=== PATIENT | female | born 1990 ===

== ENCOUNTER 2024-08-03 10:08 | Outpatient (RCR) | payer OTHER, SELFPAY | END 2024-08-03 14:28 | disposition home or self-care (01) | LOC: HO.PT 10:08 | PROVIDERS: PCP Family Medicine; Visit Provider Family Medicine | DX: M25.572 Pain in left ankle and joints of left foot (principal) | CPT/HCPCS: 97110; 97112; 97140; 97161 ==

== ENCOUNTER 2024-08-22 08:18 | Emergency (ER) | payer OTHER, SELFPAY ==
--- NOTE | ~2024-08-22 | CT_ITS ---
CLINICAL HISTORY: flank pain CT abdomen and pelvis without contrast Comparison: None Findings: No consolidation or effusion. The gallbladder is decompressed. The liver, spleen, adrenal glands and pancreas are unremarkable. There is a 2 mm nonobstructing right upper pole calculus. The left ureter is minimally prominent without radiopaque calculus. The bladder is significantly distended. There is a large right adnexal cyst, measuring up to 6 cm. No bowel obstruction or free air. No pneumatosis, free fluid or abscess. No acute osseous finding. Impression: Minimal fullness of the left ureter, without current radiopaque ureteral calculus. There is a nonobstructing 2 mm right upper pole calculus. There is a 6 cm right adnexal cysts. This document has been electronically signed by: Vinny Torres MD on 08/22/2024 10:41:08
--- NOTE | ~2024-08-22 | US_ITS ---
CLINICAL HISTORY: ? torsion, + pain + 6cm ovarvarin cyst US female pelvis LMP:Unknown. Technique: Ultrasound examination of the pelvis was performed with transabdominal and transvaginal technique for better visualization of the right ovary. Images include: color Doppler and spectral Doppler waveforms. Comparison: CT/SR - CT ABDOMEN PELVIS WO IV CON - 08/22/24 09:36 EDT Findings: Anteverted uterus measuring 9.0 x 3.5 x 4.6cm without masses. Normal endometrial thickness of 0.7cm. The right ovary is enlarged, measuring 6.5 x 5.1 x 3.6cm, volume of 62.5mL. There is normal echogenicity and arterial/venous vascularity. Hypoechoic avascular lesion with a reticular pattern measuring 5.4 x 3.8 x 4.0 cm. Status post left oophorectomy. No lesions in the left adnexa. There is a trace amount of fluid in the cul-de-sac, which is likely physiologic. Impression: 5.4 cm right ovarian hemorrhagic cyst. 8-12 week follow up pelvic ultrasound is recommended. No torsion. This document has been electronically signed by: Sheri Gill MD on 08/22/2024 13:40:44
[2024-08-22 08:25] VITALS: BP 137/91; PULSE 99; RESP 19; TEMP 36.6; O2SAT 99; BMI 30.6
[2024-08-22 08:58] VITALS: BP 129/82; PULSE 82; RESP 16; TEMP 36.6; O2SAT 99
[2024-08-22 09:14] LABS: MANUAL DIFF FLAG NO
[2024-08-22 09:16] LABS: Basophils Percent Auto 0.4 % (0-2); Eosinophils Percent Auto 0.3 % (0-4); Hematocrit 41.8 % (37.0-47.0); Hemoglobin 14.2 g/dl (12.0-16.0); Imm Gran Abs Auto 0.04 X10*3/uL (0.00-0.03); Imm Gran Pct Auto 0.4 % (0.0-0.4); Lymphocytes Absolute Auto 2.7 X10*3/uL (1.2-4.9); Lymphocytes Percent Auto 29.2 % (20-40); Mean Corpuscular Hemoglobin 31.3 pg (27.0-33.0); Mean Corpuscular Volume 92.1 fL (80.0-98.0); Mean Platelet Volume 10.4 fL (9.4-12.3); Monocytes Absolute Auto 0.5 X10*3/uL (0.1-1.2); Monocytes Percent Auto 4.9 % (2-11); Neutrophils Absolute Auto 5.9 x10*3/uL (2.0-8.3); Neutrophils Percent Auto 64.8 % (45-73); Platelet Count 292 X10*3/uL (160-400); Red Blood Count 4.54 X10*6/uL (4.20-5.50); White Blood Count 9.1 X10*3/uL (4.8-10.8)
[2024-08-22 09:18] LABS: Appearance Urine Clear; Color Urine Yellow; Glucose Urine UA Negative (Negative); Leukocyte Esterase Urine Negative (Negative); Nitrite Urine Negative (Negative); PH 6.5 (5.0-9.0); Specific Gravity - Urine 1.015 (1.005-1.025); Urine Blood Negative (Negative); Urine Ketones Negative (Negative); Urine Protein Negative (Neg-Trace)
[2024-08-22 09:19] LABS: UPreg QC Valid YES; Urine Pregnancy NEGATIVE (NEGATIVE)
[2024-08-22] MEDS: 0.9 % Sodium Chloride 1,000 ML 999 ML IV (09:25)
--- NOTE | 2024-08-22 09:31 | ED_ITS ---
HPI - Female Genitourinary General Chief complaint: Urogenital-Female Stated complaint: kidney pain uti issues Time Seen by Provider: 08/22/24 08:43 History of Present Illness HPI Narrative: patient is a 34-year-old female presents today with having dysuria for 1 week. Patient was given antibiotics at [facility] on [place] took 3 doses of Macrobid symptoms not better now complaining of bilateral flank pain. Some diarrhea. There is no vomiting. Patient does not think she is her last menstrual cycle started on August 01. Ended on the this is normal for her. There is no fever no chills. There is no vaginal discharge. Patient is from home. She had her fallopian tube removed question etiology but patient does not think she is . no cough no congestion or upper respiratory symptoms. No diaphoresis. Patient is from home. Related Data Allergies Allergy/AdvReac Type Severity Reaction Status Date / Time naproxen [NAPROXEN] Allergy Unknown ABD PAIN, Verified 08/22/24 08:27 ANXIETY oxycodone [OXYCODONE] Allergy Unknown STOMACH Verified 08/22/24 08:27 UPSET hydrocodone Allergy Unknown Verified 08/22/24 08:27 Review of Systems 2 Review of Systems: Positive flank pain bilaterally Yes all other systems are reviewed and are negative PMFSH Past Medical History Attestation statement: The following information was validated with the patient. Social History Social History Smoked in Last 30 Days: No Use of substances other than those prescribed or required for medical reasons: No Advance Directives: No Advance Directives Information Provided: No Do you have a plan to hurt others: No Plan Patient : No Physical Exam 2 Vital Signs: Vital Signs: Last Vital Signs Temp 97.3 F 08/22/24 14:09 Pulse 69 08/22/24 14:09 Resp 18 08/22/24 14:09 BP 126/89 08/22/24 14:09 Pulse Ox 100 08/22/24 14:09 O2 Del Method Room Air 08/22/24 14:09 BMI result Body Mass Index 30.6 Appearance: Alert. Oriented X3. No acute distress. Eyes: Pupils equal, round and reactive to light. ENT: Pharynx normal. Neck: Normal inspection. Neck supple. No lymph nodes noted. No crepitus CVS: Normal heart rate and rhythm. Pulses normal. Normal S1 and S2 Respiratory: No respiratory distress. Breath sounds normal. No Wheezing. No rales Abdomen: Soft and nontender. No rigidity. No distention. good BS x4 Skin: Skin warm and dry. Normal skin color. Normal skin turgor. Extremities: No lower extremity edema. Neurovascular intact to all extremities. No Lacerations. No Rash Neuro: Oriented X 3. No motor deficit. No sensory deficit. Moving all extermities. No slurred speech Medications Administered Discontinued Medications Generic Name Dose Route Start Last Admin Trade Name Freq PRN Reason Stop Dose Admin Sodium Chloride 1,000 mls @ 999 mls/hr 08/22/24 09:15 08/22/24 11:03 Ns IV 08/22/24 10:15 Infused .Q1H1M WILL Infusion Ketorolac Tromethamine 15 mg 08/22/24 09:31 08/22/24 10:23 Ketorolac Tromethamine 15 Mg/Ml Vial IVPUSH 08/22/24 09:32 Not Given ONCE ONE Medical Decision Making Medical Decision Making [facility] Narrative: 34 years old presents today with having some dysuria. Some flank pain. Also having pain in the right lower quadrant. Patient CT scan showed a ovarian cysts on the right side about 5 cm in size. An ultrasound was done. There is no evidence for torsion. Urine showed no signs of infection gonorrhea chlamydia negative. CT of the abdomen pelvis showed no evidence of appendicitis no evidence of kidney stone no evidence for obstruction. multimedia manager was contacted on the ultrasound a 5 cm hemorrhagic cyst was observed. No evidence for torsion. Will require follow-up on an outpatient basis. Differential Diagnosis Differential Diagnoses: The differential diagnosis associated with the presentation includes ovarian cysts, appendicitis, kidney stone, urinary tract infection, pyelonephritis Admission/Observation Consideration of admission/observation: Escalation of care including admission/observation considered Consult Healthcare Provider Management of the patient was discussed with: Truant Officer ( OBGYN from [facility]. Dr. Perdomo agree with plan of discharge) Lab Data [facility] Lab Attestation statement: I reviewed the patient's lab results. 08/22/24 08:43 08/22/24 08:43 Labs: Lab Results 08/22/24 08/22/24 08/22/24 Range/Units 08:43 08:44 10:16 WBC 9.1 (4.8-10.8) X10*3/uL RBC 4.54 (4.20-5.50) X10*6/uL Hgb 14.2 (12.0-16.0) g/dl Hct 41.8 (37.0-47.0) % MCV 92.1 (80.0-98.0) fL MCH 31.3 (27.0-33.0) pg MCHC 34.0 (31.0-35.0) g/dl RDW 13.0 (11.0-16.0) % Plt Count 292 (160-400) X10*3/uL MPV 10.4 (9.4-12.3) fL Immature Gran % (Auto) 0.4 (0.0-0.4) % Neut % (Auto) 64.8 (45-73) % Lymph % (Auto) 29.2 (20-40) % [place] % (Auto) 4.9 (2-11) % Eos % (Auto) 0.3 (0-4) % Baso % (Auto) 0.4 (0-2) % Lymph # (Auto) 2.7 (1.2-4.9) X10*3/uL [place] # (Auto) 0.5 (0.1-1.2) X10*3/uL Eos # (Auto) 0.0 (0.0-0.4) X10*3/uL Baso # (Auto) 0.0 (0.0-0.2) X10*3/uL Abs Immat Gran (auto) 0.04 H (0.00-0.03) X10*3/uL Absolute Neuts (auto) 5.9 (2.0-8.3) x10*3/uL Absolute Nucleated RBC 0.000 (0.0-0.012) X10*3/uL Nucleated RBC % (auto) 0.0 (0.0-0.2) /100WBC Sodium 138 (135-145) mmol/L Potassium 4.1 (3.3-5.1) mmol/L Chloride 108 (96-108) mmol/L Carbon Dioxide 22 (22-29) mmol/L Anion Gap 12 (12-20) BUN 13 (9-16) mg/dL Creatinine 0.74 (0.5-1.4) mg/dL Estim Creat Clear Calc 106.2 Estimated GFR > 60 Random Glucose 86 (60-115) mg/dL Calcium 9.7 (8.4-10.2) mg/dL Total Bilirubin 0.9 (0.0-1.0) mg/dL Direct Bilirubin 0.2 (0.0-0.5) mg/dL AST 26 (5-31) U/L ALT 19 (0-31) U/L Alkaline Phosphatase 51 (39-117) U/L Total Protein 7.7 (6.5-8.0) g/dL Albumin 4.3 (3.5-5.0) g/dL Lipase 22 (8-78) U/L Urine Color Yellow Urine Appearance Clear Urine pH 6.5 (5.0-9.0) Ur Specific [place] 1.015 (1.005-1.025) Urine Protein Negative (Neg-Trace) mg/dL Urine Glucose (UA) Negative (Negative) mg/dL Urine Ketones Negative (Negative) mg/dL Urine Blood Negative (Negative) Urine Nitrite Negative (Negative) Ur Leukocyte Esterase Negative (Negative) Urine Test NEGATIVE (NEGATIVE) Chlam trachomat DNA PCR NOT DETECTED (Not Detect.) N.gonorrhoeae DNA (PCR) NOT DETECTED (Not Detect.) Independent Interpretation I performed an independent interpretation of an: CT Scan ( no gross obstruction) Radiology Impression Discussion of test interpretation with radiology: I have reviewed the radiologist's reading. Discharge Plan Discharge Clinical Impression: Ovarian cyst Patient Disposition: Home, Self-Care Instructions: Ovarian Cyst (ED) Print Language: Portuguese
[2024-08-22 09:39] LABS: Alanine Aminotransferase 19 U/L (0-31); Albumin Level 4.3 g/dL (3.5-5.0); Alkaline Phosphatase 51 U/L (39-117); Anion Gap 12 (12-20); Aspartate Amino Transferase 26 U/L (5-31); Bilirubin Direct 0.2 mg/dL (0.0-0.5); Bilirubin Total 0.9 mg/dL (0.0-1.0); Blood Urea Nitrogen 13 mg/dL (9-16); Calcium 9.7 mg/dL (8.4-10.2); Carbon Dioxide 22 mmol/L (22-29); Chloride 108 mmol/L (96-108); Creatinine Clr Calc Pharmacy 106.2; Estimated Glomerular Filt Rate > 60; Glucose Random 86 mg/dL (60-115); Lipase 22 U/L (8-78); Potassium 4.1 mmol/L (3.3-5.1); Sodium 138 mmol/L (135-145); Total Protein 7.7 g/dL (6.5-8.0)
[2024-08-22 11:13] VITALS: BP 133/90; PULSE 71; RESP 16; TEMP 36.7; O2SAT 100
[2024-08-22 11:55] LABS: CT PCR NOT DETECTED (Not Detect.); NG PCR NOT DETECTED (Not Detect.)
--- NOTE | 2024-08-22 12:18 | PC.NURSE ---
Patient A&O x 4. Patient independent with ambulation w/o assistive device. Patient presents to ED with c/o dysuria for approx 1 week. Patient started on ABT on friday. Bilateral flank pain to nights ago. Patient c/o N/D after starting ABT, last vomited this AM non bloody. Patient denies pain at rest, pain rated 5/10 when urinating or sleeping. 20G started in right hand, patent and administered 1 L NaCl. Patient ordered tordol per provider, Patient refused tordol, because I dont like meds. Abdomen/Pelvis CT performed report states minimal fullness of the left ureter, without current radiopaque ureteral calculus.There is a nonobstructing 2 mm right upper pole calculus. There is a 6 cm right adnexal cysts. Family members at bedside. Plan of care on going
--- NOTE | 2024-08-22 12:56 | PC.NURSE ---
Patient went for ultrasound, results pending. Mom is at bedside.
[2024-08-22 14:09] VITALS: BP 126/89; PULSE 69; RESP 18; TEMP 36.3; O2SAT 100
[2024-08-22 14:38] VITALS: BP 126/89; PULSE 69; RESP 18; TEMP 36.3; O2SAT 100
[2024-08-22 14:44] VITALS: BP 126/89; PULSE 69; RESP 18; TEMP 36.3; O2SAT 100
== END 2024-08-22 14:49 | disposition home or self-care (01) ==
PROVIDERS: Emergency Provider Emergency Medicine Emergency Medical Services; PCP Family Medicine
DX: N83.201 Unspecified ovarian cyst, right side (principal); R30.0 Dysuria; R10.31 Right lower quadrant pain
CPT/HCPCS: 36415; 74176; 76830; 76856; 80048; 80076; 81003; 81025; 83690; 85025; 87491; 87591; 93975; 96360; 96361; 99284; 99285

== ENCOUNTER → 2024-08-22 09:31 | Outpatient (BNV) | payer OTHER, SELFPAY | PROVIDERS: Emergency Provider Emergency Medicine Emergency Medical Services; PCP Family Medicine; Visit Provider Radiology Vascular & Interventional Radiology | DX: N20.0 Calculus of kidney (principal); N83.201 Unspecified ovarian cyst, right side | CPT/HCPCS: 74176; 93975 ==

== ENCOUNTER 2025-03-15 08:59 | Emergency (ER) | payer OTHER, SELFPAY ==
[2025-03-15 09:22] VITALS: BP 124/60; PULSE 100; RESP 16; TEMP 36.6; O2SAT 98; BMI 30.3
--- NOTE | 2025-03-15 09:23 | ED.GENADULT ---
HPI - General Adult General Chief complaint: General Medical Stated complaint: Blood In Stool Time Seen by Provider: 03/15/25 15:56 Source: patient Mode of arrival: ambulatory Limitations: no limitations History of Present Illness ED Provider: DR. Chavarria HPI narrative: 34-year-old female otherwise healthy presented for Evaluation of blood in the urine x1 last night then improved then this morning patient had a bowel movement with bright red blood per rectum x1 time, patient has no abdominal pain, no fever, no chills, no nausea, no vomiting, last bowel movement was this morning and was normal, passing flatus normally. History of appendectomy, left oophorectomy, hernia repair x2. No history of taking anticoagulation. Related Data Previous Rx's ?Medication ?Instructions ?Recorded ibuprofen 400 mg tablet 400 mg PO Q6H PRN pain #20 tabs 08/22/24 ondansetron 4 mg disintegrating 4 mg PO TID PRN nausea and 08/22/24 tablet vomiting 5 days #10 tabs Allergies Allergy/AdvReac Type Severity Reaction Status Date / Time naproxen (NAPROXEN) Allergy Unknown ABD PAIN, Verified 03/15/25 09:25 ANXIETY oxycodone (OXYCODONE) Allergy Unknown STOMACH Verified 03/15/25 09:25 UPSET hydrocodone Allergy Unknown Verified 03/15/25 09:25 Review of Systems Review of Systems: All other systems are reviewed and are negative Constitutional: Reports as per HPI and Reports no additional constitutional complaints Eyes: Reports as per HPI and Reports no additional eye complaints Reports system reviewed and no additional complaints, except as documented Cardiovascular: Reports as per HPI and Reports no additional cardiovascular complaints Respiratory: Reports as per HPI and Reports no additional respiratory complaints Gastrointestinal: Reports as per HPI and Reports no additional gastrointestinal complaints Genitourinary: Reports no additional female genitourinary complaints Musculoskeletal: Reports no additional musculoskeletal complaints Skin/Breast: Reports system reviewed and no additional complaints, except as docu Psychiatric: Reports no additional psychiatric complaints Endocrine: Reports no additional endocrine complaints Hematologic/Lymphatic: Reports no additional hematologic/lymphatic complaints Allergic/Immunologic: Reports no additional allergic/immunologic complaints Reports system reviewed and no additional complaints, except as documented and Reports Abnormal speech present PMFSH Social History Social History Advance Directives: Yes Advance Directives Information Provided: Yes Advance Directives on File: No Do you have a plan to hurt others: No Plan Physical Exam ED Vital Signs: Vital Signs - 24 hr 03/15/25 09:22 03/15/25 14:58 Temperature 97.9 F 97.0 F Pulse Rate 100 78 Respiratory Rate 16 20 Blood Pressure 124/60 136/65 Pulse Oximetry 98 100 Oxygen Delivery Method Room Air Room Air BMI result Body Mass Index 30.3 Vital signs have been reviewed and appear to be correct. Blood pressure elevated. Heart rate normal. Respiratory rate normal. Temperature normal. Oxygen saturation normal. Appearance: Alert. Oriented X3. No acute distress. Head: Normal external exam. Normocephalic. Atraumatic. No Romo signs noted. No raccoon eyes noted Eyes: PERRLA. EOMI. Conjunctiva and sclera normal. Eyelids normal. ENT: TM's Normal. Pharynx normal. Uvula midline. Moist mucous membranes. No trismus noted. No drooling noted. No muffled voice noted. Neck: Normal inspection. Neck supple. FROM. No adenopathy. Thyroid Normal. No meningeal signs. No neck mass noted. CVS: Normal heart rate and rhythm. Heart sound normal. No murmurs noted. Pulses normal throughout. Respiratory: No respiratory distress. Painless inspiration. Breath sounds normal. No wheezes/rales/rhonchi noted. Chest nontender. No accessory muscle usage noted or decreased air movement noted. Abdomen: Soft and nontender. Bowel sounds normal in all 4 quadrants. No distention noted. No organomegaly noted. No visible injury noted. 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 Back: No CVA tenderness. Full range of motion noted. Skin: Skin warm and dry. Normal skin color. Normal skin turgor. No rashes/lesions/lacerations noted. Extremities: No lower extremity edema. Extremities exhibit normal range of motion. Extremities nontender. Neuro: Oriented X 3. Cranial nerve exam: II-XII are grossly intact No motor deficit. No sensory deficit. Reflexes normal. Course Course Course Narrative: Rapid medical examination performed in triage by Esperanza Mclaughlin PA-C: Patient is a 34 year old assigned female at presenting to the emergency department with blood in her stool. Detailed physical exam and review of systems are deferred to the primary health care nurse. Labs ordered. Patient placed back in the waiting room pending room availability and results. Reevaluation(s) Reevaluation #1: 34-year-old female presented with right red blood per rectum, unremarkable rectal exam, UA shows no blood in her, no UTI. Stable H&H, stable vital signs. Patient was instructed to follow-up with GI and PCP. Time: 17:15 Medical Decision Making Differential Diagnosis Differential Diagnoses: The differential diagnosis associated with the presentation includes ( Colitis, diverticulitis, hemorrhoids, coagulopathy, anemia, electrolyte derangement.) Admission/Observation Consideration of admission/observation: Escalation of care including admission/observation considered Lab Data MDM Lab Attestation statement: I reviewed the patient's lab results. 03/15/25 09:34 03/15/25 09:34 Labs: Lab Results 03/15/25 03/15/25 03/15/25 Range/Units 09:34 13:29 16:14 WBC 8.8 (4.8-10.8) X10*3/uL RBC 4.88 (4.20-5.50) X10*6/uL Hgb 14.6 (12.0-16.0) g/dl Hct 43.6 (37.0-47.0) % MCV 89.3 (80.0-98.0) fL MCH 29.9 (27.0-33.0) pg MCHC 33.5 (31.0-35.0) g/dl RDW 12.9 (11.0-16.0) % Plt Count 281 (160-400) X10*3/uL MPV 9.8 (9.4-12.3) fL Immature Gran % (Auto) 0.2 (0.0-0.4) % Neut % (Auto) 64.7 (45-73) % Lymph % (Auto) 29.5 (20-40) % [place] % (Auto) 4.3 (2-11) % Eos % (Auto) 0.7 (0-4) % Baso % (Auto) 0.6 (0-2) % Lymph # (Auto) 2.6 (1.2-4.9) X10*3/uL [place] # (Auto) 0.4 (0.1-1.2) X10*3/uL Eos # (Auto) 0.1 (0.0-0.4) X10*3/uL Baso # (Auto) 0.1 (0.0-0.2) X10*3/uL Abs Immat Gran (auto) 0.02 (0.00-0.03) X10*3/uL Absolute Neuts (auto) 5.7 (2.0-8.3) x10*3/uL Absolute Nucleated RBC 0.000 (0.0-0.012) X10*3/uL Nucleated RBC % (auto) 0.0 (0.0-0.2) /100WBC PT 12.6 (11.2-13.5) SEC INR 1.0 (0.9-1.1) Sodium 139 (135-145) mmol/L Potassium 4.1 (3.3-5.1) mmol/L Chloride 109 H (96-108) mmol/L Carbon Dioxide 23 (22-29) mmol/L Anion Gap 11 L (12-20) BUN 10 (9-16) mg/dL Creatinine 0.82 (0.5-1.4) mg/dL Estim Creat Clear Calc 95.3 Estimated GFR > 60 Random Glucose 96 (60-115) mg/dL Calcium 9.5 (8.4-10.2) mg/dL Total Bilirubin 1.0 (0.0-1.0) mg/dL AST 29 (5-31) U/L ALT 18 (0-31) U/L Alkaline Phosphatase 47 (39-117) U/L Total Protein 8.1 H (6.5-8.0) g/dL Albumin 4.6 (3.5-5.0) g/dL Urine Color Yellow Urine Appearance Clear Urine pH 6.5 (5.0-9.0) Ur Specific [place] 1.020 (1.005-1.025) Urine Protein Negative (Neg-Trace) mg/dL Urine Glucose (UA) Negative (Negative) mg/dL Urine Ketones Negative (Negative) mg/dL Urine Blood Negative (Negative) Urine Nitrite Negative (Negative) Ur Leukocyte Esterase Negative (Negative) Stool Occult Blood NEGATIVE (NEGATIVE) Discharge Plan Discharge Clinical Impression: Rectal bleed Patient Disposition: Home, Self-Care Instructions: Rectal Bleeding (ED) Prescriptions: No Action ibuprofen 400 mg tablet 400 mg PO Q6H PRN (Reason: pain) Qty: 20 0RF ondansetron 4 mg tablet,disintegrating 4 mg PO TID PRN (Reason: nausea and vomiting) 5 Days Qty: 10 0RF Referrals: Yenifer Johns MD [Primary Care Provider, Internal Medicine] Keyla Hyde MD [Physician, Gastroenterology] Print Language: Spanish
[2025-03-15 09:41] LABS: MANUAL DIFF FLAG NO
[2025-03-15 09:42] LABS: Hematocrit 43.6 % (37.0-47.0); Hemoglobin 14.6 g/dl (12.0-16.0); Imm Gran Abs Auto 0.02 X10*3/uL (0.00-0.03); Imm Gran Pct Auto 0.2 % (0.0-0.4); Lymphocytes Absolute Auto 2.6 X10*3/uL (1.2-4.9); Mean Corpuscular HGB Conc 33.5 g/dl (31.0-35.0); Mean Corpuscular Hemoglobin 29.9 pg (27.0-33.0); Mean Corpuscular Volume 89.3 fL (80.0-98.0); NRBC Abs Auto 0.000 X10*3/uL (0.0-0.012); NRBC Pct Auto 0.0 /100WBC (0.0-0.2); Platelet Count 281 X10*3/uL (160-400); Red Blood Count 4.88 X10*6/uL (4.20-5.50); White Blood Count 8.8 X10*3/uL (4.8-10.8)
[2025-03-15 09:48] LABS: INTERNATIONAL NORM RATIO 1.0 (0.9-1.1); Prothrombin Time 12.6 SEC (11.2-13.5)
[2025-03-15 10:02] LABS: Alanine Aminotransferase 18 U/L (0-31); Albumin Level 4.6 g/dL (3.5-5.0); Alkaline Phosphatase 47 U/L (39-117); Anion Gap 11 (12-20); Aspartate Amino Transferase 29 U/L (5-31); Blood Urea Nitrogen 10 mg/dL (9-16); Calcium 9.5 mg/dL (8.4-10.2); Carbon Dioxide 23 mmol/L (22-29); Chloride 109 mmol/L (96-108); Creatinine Clr Calc Pharmacy 95.3; Estimated Glomerular Filt Rate > 60; Potassium 4.1 mmol/L (3.3-5.1); Sodium 139 mmol/L (135-145); Total Protein 8.1 g/dL (6.5-8.0)
--- OUTSIDE RECORDS SUMMARY | 2025-03-15 10:29 | XMS_ITS | Encounter Summary ---
Author Organization [facility] Address [address] [place] [phone] Phone Care Team Providers Care Rubber Curer Name Role Phone Ami Padron MD Primary Care Provider Encounter Details Date Type Department Care Team (Late st Contact Info) Description 05/28/2011 [place] [facility] [place] [address] [place] [address] Family Medicine, Physician [address] [place], [place] [phone] Social History Tobacco Use Types Packs/Day Years Used Date Smoking Tobacco: Never Assessed Comments Unknown Sex and Gender Information Value Date Recorded Sex Assigned at Not on file Legal Sex Female 4:41 PM EDT Gender Identity Not on file Sexual Orientation Not on file documented as of this encounter Plan of Treatment Not on file documented as of this encounter Visit Diagnoses Not on filedocumented in this encounter Care Teams Rubber Curer Relationship Specialty Start Date End Date Ami Padron MD [address] [facility] [place] [address] PCP - General 11/22/16 07/15/22 documented as of this encounter
--- OUTSIDE RECORDS SUMMARY | 2025-03-15 10:29 | XMS_ITS | Encounter Summary ---
Author Organization [facility] Address [address] [place] [phone] Phone Care Team Providers Care Tax Specialist Name Role Phone Ami Padron MD Primary Care Provider Encounter Details Date Type Department Care Team (Late st Contact Info) Description 02/28/2010 Documentation [facility] [place] [address] [place] [address] Family Medicine, Physician [address] [place], [place] [phone] Social History Tobacco Use Types Packs/Day Years [...] on filedocumented in this encounter Care Teams Tax Specialist Relationship Specialty Start Date End Date Ami Padron MD [address] [facility] [place] [address] PCP - General 11/22/16 07/15/22 documented as of this encounter
--- OUTSIDE RECORDS SUMMARY | 2025-03-15 10:29 | XMS_ITS | Encounter Summary ---
Author Organization [facility] Address [address] [place] [phone] Phone Care Team Providers Care Food Mixer Assembler Name Role Phone Ami Padron MD Primary Care Provider [phone] Encounter Details Date Type Department Care Team (Late st Contact Info) Description 02/20/2011 Documentation [facility] [place] Medicine [address] [place] [address] Family Medicine, Physician [address] [place], [place] [phone] Social History Tobacco Use Types Packs/Day Years [...] on filedocumented in this encounter Care Teams Food Mixer Assembler Relationship Specialty Start Date End Date Ami Padron MD [address] [facility] [place] [address] PCP - General 11/22/16 07/15/22 documented as of this encounter
--- OUTSIDE RECORDS SUMMARY | 2025-03-15 10:29 | XMS_ITS | Encounter Summary ---
Author Organization [facility] Address [address] [place] [phone] Phone Care Team Providers Care Supervisor Quilting Name Role Phone Ami Padron MD Primary Care Provider Encounter Details Date Type Department Care Team (Late st Contact Info) Description 03/20/2011 Documentation [facility] [place] Medicine [address] [place] [address] Family Medicine, Physician [address] [place], [place] [phone] Social History Tobacco Use Types Packs/Day Years [...] on filedocumented in this encounter Care Teams Supervisor Quilting Relationship Specialty Start Date End Date Ami Padron MD [address] [facility] [place] [address] PCP - General 11/22/16 07/15/22 documented as of this encounter
--- OUTSIDE RECORDS SUMMARY | 2025-03-15 10:29 | XMS_ITS | Encounter Summary ---
Author Organization [facility] Address [address] [place] [phone] Phone Care Team Providers Care Analytical Scientist Name Role Phone Ami Padron MD Primary Care Provider Encounter Details Date Type Department Care Team (Late st Contact Info) Description 11/28/2016 Conversion Encounter [facility] [place] [address] [place] [address] Social History Tobacco Use Types Packs/Day Years Used Date Smoking Tobacco: Never Comments:Never smoker Comments Unknown Sex and Gender Information Value Date Recorded Sex Assigned at Not on file Legal Sex Female 4:41 PM EDT Gender Identity Not on file Sexual Orientation Not on file documented as of this encounter Plan of Treatment Not on file documented as of this encounter Visit Diagnoses Not on filedocumented in this encounter Care Teams Analytical Scientist Relationship Specialty Start Date End Date Ami Padron MD [address] [place] [address] PCP - General 11/22/16 07/15/22 documented as of this encounter
--- OUTSIDE RECORDS SUMMARY | 2025-03-15 10:29 | XMS_ITS | Clinical Summary ---
Author Organization [facility] Address [address] [place] [id number] Phone Care Team Providers Care Claims Processor Name Role Phone Unavailable Primary Care Provider Unavailabl e Immunizations Immunization Administration Dates Next Due DTaP 5 05/29/1997, 2,01/26/1991,11/26,1990 HPV, Quadrivalent 10/05/2007,05/27/2007,03/18/20 07 Hep B, ped/adol 03/28/1992, 1,1990,09/26,1990 Hib (HbOC) 05/29/1992, 2,1990,09/26 IPV 07/02/2005, 2,01/26/1991,11/26,1990 Influenza, injectable, trivalent 03/30/2009,03/14,03/18/2007 MMR 11/27/1995,01/26/1991 Meningococcal Conj (Menactra) MCV4P 07/05/2008 Td (adult) (MBL), 2 Lf tetan us toxoid, PF, adsorbed 10/12/2002 Tdap 07/05/2008 Family History Relation Name Status Comments Father Father: Hyperte nsion, Asthma Mother Alive Mother: Migrain es Other Alive grandmother: Di abetes mellitus Sister Alive Sister: Asthma Social History Tobacco Use Types Packs/Day Years Used Date Smoking Tobacco: Never Comments:Never smoker Comments Unknown Sex and Gender Information Value Date Recorded Sex Assigned at Not on file Legal Sex Female 4:41 PM EDT Gender Identity Not on file Sexual Orientation Not on file Last Filed Vital Signs Vital Sign Reading Time Taken Comments Blood Pressure 104/62 07/06/2010 12:00 AM EDT Pulse 72 07/06/2010 12:00 AM EDT Temperature 35.9 C (96.7 F) 03/18/2011 12:00 AM EST Respiratory Rate - - Oxygen Saturation - - Inhaled Oxygen Concentration - - Weight 48.1 kg (106 lb) 07/09/2011 12:00 AM EDT Height 160.8 cm (5' 3.3 ) 07/09/2011 12:00 AM ED T Body Mass Index 18.6 07/09/2011 12:00 AM EDT Plan of Treatment Health Maintenance Due Date Last Done Comments Varicella Vaccines (1 of 2 - 13+ 2-dose series) 07/16/2003 DTaP,Tdap,and Td Vaccines (7 - Td or Tdap) 07/05/2018 07/05/2008, 10/12/2002, 05/29/1997, Additional history exists Influenza Vaccines (#1) 2024 03/30/20, 03/31/2008, 03/18/2007 COVID-19 Vaccine ( season) 2024 Hepatitis B Vaccines Completed 03/28/1992, 01/26/1991, 1990, Additional history exists HIB Vaccines Completed 05/29/1992, 05/15, 1990, Additional history exists MMR Vaccines Completed 11/27/1995, 01/26/1991 IPV Vaccines Completed 07/02/2005, 03/14, 01/26/1991, Additional history exists HPV Vaccines Completed 10/05/2007, 05/15, 03/18/2007 Meningococcal Vaccine Completed 07/05/2008 Hepatitis A Vaccines Aged Out No long er eligible based on patient's age to complete this topic Men B Vaccine Aged Out No longer elig ible based on patient's age to complete this topic Pneumococcal Vaccine Aged Out No long er eligible based on patient's age to complete this topic
--- OUTSIDE RECORDS SUMMARY | 2025-03-15 10:29 | XMS_ITS | Encounter Summary ---
Author Organization [facility] Address [address] [place] [phone] Phone Care Team Providers Care Build Automation Engineer Name Role Phone Ami Padron MD Primary Care Provider Encounter Details Date Type Department Care Team (Late st Contact Info) Description 06/17/2011 Documentation [facility] [place] [address] [place] [address] Family Medicine, Physician [address] [place], [place] [phone] Social History Tobacco Use Types Packs/Day Years [...] on filedocumented in this encounter Care Teams Build Automation Engineer Relationship Specialty Start Date End Date Ami Padron MD [address] [facility] [place] [address] PCP - General 11/22/16 07/15/22 documented as of this encounter
--- OUTSIDE RECORDS SUMMARY | 2025-03-15 10:29 | XMS_ITS ---
Author Name [facility] Organization Unknown Care Team Organization Name Specialty Phone Email Start Date End Da te [facility] NIKKO MARIA Primary Care 02/19/2022 4
--- OUTSIDE RECORDS SUMMARY | 2025-03-15 10:29 | XMS_ITS | Encounter Summary ---
Author Organization [facility] Address [address] [place] [phone] Phone Care Team Providers Care Transformation Analyst Name Role Phone Ami Padron MD Primary Care Provider [phone] Encounter Details Date Type Department Care Team (Late st Contact Info) Description 02/20/2011 Documentation [facility] [place] Medicine [address] [place] [address] Family Medicine, Physician [address] [place], [place] [phone] Social History Tobacco Use Types Packs/Day Years [...] on filedocumented in this encounter Care Teams Transformation Analyst Relationship Specialty Start Date End Date Ami Padron MD [address] [facility] [place] [address] PCP - General 11/22/16 07/15/22 documented as of this encounter
--- OUTSIDE RECORDS SUMMARY | 2025-03-15 10:29 | XMS_ITS | Encounter Summary ---
Author Organization [facility] Address [address] [place] [phone] Phone Care Team Providers Care Assembly And Packing Supervisor Name Role Phone Ami Padron MD Primary Care Provider Encounter Details Date Type Department Care Team (Late st Contact Info) Description 02/21/2011 Documentation [facility] [place] Family Medicine [address] [place] [address] Family Medicine, Physician [address] [place], [place] [phone] Social History Tobacco Use Types Packs/Day Years [...] on filedocumented in this encounter Care Teams Assembly And Packing Supervisor Relationship Specialty Start Date End Date Ami Padron MD [address] [facility] [place] [address] PCP - General 11/22/16 07/15/22 documented as of this encounter
--- OUTSIDE RECORDS SUMMARY | 2025-03-15 10:29 | XMS_ITS | Encounter Summary ---
Author Organization [facility] Address [address] [place] [phone] Phone Care Team Providers Care Guest Services Assistant Name Role Phone Ami Padron MD Primary Care Provider Encounter Details Date Type Department Care Team (Late st Contact Info) Description 05/27/2011 Documentation [facility] [place] Family Medicine [address] [place] [address] Family Medicine, Physician [address] [place], [place] [phone] Social History Tobacco Use Types Packs/Day Years [...] on filedocumented in this encounter Care Teams Guest Services Assistant Relationship Specialty Start Date End Date Ami Padron MD [address] [facility] [place] [address] PCP - General 11/22/16 07/15/22 documented as of this encounter
[2025-03-15 13:38] LABS: Appearance Urine Clear; Glucose Urine UA Negative (Negative); PH 6.5 (5.0-9.0); Specific Gravity - Urine 1.020 (1.005-1.025)
[2025-03-15 14:58] VITALS: BP 136/65; PULSE 78; RESP 20; TEMP 36.1; O2SAT 100
[2025-03-15 16:20] LABS: OBS Int Ctl Valid YES; OBS1 NEGATIVE (NEGATIVE)
[2025-03-15 16:37] VITALS: BP 124/88; PULSE 75; RESP 16; TEMP 36.6; O2SAT 99
== END 2025-03-16 02:52 | disposition home or self-care (01) ==
PROVIDERS: Physician Assistant Medical; Emergency Provider Emergency Medicine; PCP Family Medicine
DX: K62.5 Hemorrhage of anus and rectum (principal); R31.9 Hematuria, unspecified
CPT/HCPCS: 36415; 80053; 81003; 82272; 84702; 85025; 85610; 99283